=== PATIENT | female | born 1985 | race Caucasian/White ===

== ENCOUNTER 2017-02-15 13:16 | Emergency (ER) | END 2017-02-15 17:18 | disposition home or self-care (01) | DX: O23.12 Infections of bladder in pregnancy, second trimester (principal); R40.2252 Coma scale, best verbal response, oriented, at arrival to emergency department; R10.30 Lower abdominal pain, unspecified; R10.2 Pelvic and perineal pain; R40.2142 Coma scale, eyes open, spontaneous, at arrival to emergency department; R40.2362 Coma scale, best motor response, obeys commands, at arrival to emergency department; Z3A.14 14 weeks gestation of pregnancy | CPT/HCPCS: 76801; 81001; 84702; 85025; 86900; 86901; Z7502; Z7610 ==